=== PATIENT | male | born 1990 | race Caucasian/White ===

== ENCOUNTER → 2018-04-24 | Outpatient (REF) | payer SELFPAY ==
[2018-04-24 20:56] LABS: INFLUENZA A AMPLIFICATION POSITIVE (NEGATIVE); INFLUENZA B AMPLIFICATION NEGATIVE (NEGATIVE)
== END ==
LOC: M LAB REF 19:17
PROVIDERS: ATTEND Physician Assistant
DX: J11.1 Influenza due to unidentified influenza virus with other respiratory manifestations (principal)

== ENCOUNTER 2019-02-21 11:52 | Emergency (ER) | payer BC, SELFPAY ==
[~2019-02-21] VITALS: Ht 172.7 cm; Wt 85.8 kg
[2019-02-21 13:10] LABS: BASO % 0.2 % (0.0-1.0); EOS % 0.1 % (0.0-3.0); HEMATOCRIT 44.7 % (42.0-52.0); HEMOGLOBIN 15.2 g/dl (13.5-17.5); LYMPH # 1.5 10^3/uL (1.5-5.0); LYMPH % 9.3 % (24.0-44.0); MEAN CORPUSCULAR HEMOGLOBIN 29.7 pg (27.0-33.0); MEAN CORPUSCULAR VOLUME 87.3 fl (80.0-96.0); MONO # 0.7 10^3/uL (0.0-0.8); MONO % 4.2 % (0.0-5.0); NEUTROPHILS # 13.7 10^3/uL (1.5-8.5); NEUTROPHILS % 85.8 % (36.0-66.0); PLATELET COUNT, AUTOMATED 314 10^3/uL (150-450); RED BLOOD COUNT 5.12 10^6/uL (4.30-6.10)
[2019-02-21 13:37] LABS: ALBUMIN 4.5 GM/DL (3.2-5.2); ALT/SGPT 25 U/L (12-78); BILIRUBIN,DIRECT 0.2 MG/DL (0.0-0.2); BLOOD UREA NITROGEN 16 MG/DL (7-18); CALCIUM LEVEL 9.9 MG/DL (8.5-10.1); CARBON DIOXIDE LEVEL 21 MEQ/L (21-32); CHLORIDE LEVEL 108 MEQ/L (98-107); CREATININE FOR GFR 1.28 MG/DL (0.70-1.30); GLOMERULAR FILTRATION RATE > 60.0 (>60); GLUCOSE, FASTING 118 MG/DL (70-100); LIPASE 373 U/L (73-393); POTASSIUM SERUM 3.6 MEQ/L (3.5-5.1); SODIUM LEVEL 141 MEQ/L (136-145); TOTAL PROTEIN 7.6 GM/DL (6.4-8.2)
[2019-02-21] MEDS: MORPHINE 4 MG/ML 1ML VIAL/SYRINGE (J2270) IV PRN ×2 (14:00→15:18)
[2019-02-21] MEDS ORDERED: ONDANSETRON 4MG/2ML VIAL (J2405) IV ONE (14:00)
--- NOTE | 2019-02-21 14:29 | REP ---
Clinical: Hematuria and right-sided pain. Technique: Axial noncontrast images from the lung bases to the pubic symphysis with coronal and sagittal re-formations. Findings: Mild acute right-sided obstructive uropathy with edematous enlargement to the right kidney, perinephric stranding and hydroureteronephrosis a 4.5 mm calculus 1 cm proximal to the ureterovesicle junction (image 127). No further nephrolithiasis. Left kidney/ureter and bladder are normal. Liver, spleen, pancreas, gallbladder, bilateral adrenal glands are normal. The enteric system is normal. Normal appendix. Pelvis demonstrates age appropriate prostate/seminal vesicles. No ascites. No free air. No adenopathy. Abdominal aorta without aneurysm. Musculoskeletal structures are intact. Lung bases are clear. Impression: Acute right-sided obstructive uropathy with a 4.5 mm calculus just above the ureterovesical junction. Electronically Signed by Gabriele Bolivar MD 02/21/2019 02:20 P
[2019-02-21] MEDS ORDERED: KETOROLAC 30 MG/ML VIAL (J1885) As Ordered ONE (14:38)
[2019-02-21] MEDS ORDERED: KETOROLAC 30 MG/ML VIAL (J1885) IV ONE (14:45)
[2019-02-21] MEDS ORDERED: PERC5TAB12 PO (17:32)
[2019-02-21] MEDS ORDERED: FLOM0.4C39 PO (17:32)
[2019-02-21] MEDS ORDERED: ONDA4TAB6 PO (17:32)
[2019-02-21 17:47] VITALS: BP 133/65
== END 2019-02-21 17:49 | disposition home or self-care (01) ==
LOC: M ED 11:52
DX: N20.1 Calculus of ureter (principal); Z79.891 Long term (current) use of opiate analgesic; Z79.899 Other long term (current) drug therapy
CPT/HCPCS: 74176; 80048; 80076; 81001; 83690; 85025; 96374; 96375; 96376; 99284; J1885; J2270; J2405

== ENCOUNTER 2019-11-18 23:45 | Emergency (ER) | payer BC, OTHER ==
[~2019-11-18] VITALS: Ht 172.7 cm; Wt 83.9 kg
[~2019-11-18 23:45] MED LIST: FLOM0.4C39 PO; ONDA4TAB6 PO; PERC5TAB12 PO
[2019-11-19] MEDS ORDERED: LIDOCAINE 1% MDV 20ML VIAL As Ordered ONE (01:12)
[2019-11-19] MEDS ORDERED: LIDOCAINE W/EPINEPHRINE 1% 20ML VIAL As Ordered ONE (01:12)
[2019-11-19] MEDS ORDERED: BOOSTRIX/ADACEL VACCINE (DIPHTH/PERTUSS/ACELL/TETANUS) 0.5ML SYR IM ONE (02:00)
[2019-11-19] MEDS ORDERED: KETOROLAC 30 MG/ML 1ML VIAL IM ONE (02:00)
[2019-11-19] MEDS ORDERED: AUGMENTIN 875 MG TAB PO ONE (02:00)
[2019-11-19] MEDS ORDERED: LIDOCAINE W/EPINEPHRINE 1% 20ML VIAL SC ONE (02:30)
[2019-11-19] MEDS ORDERED: LIDOCAINE 1% MDV 20ML VIAL SC ONE (02:30)
[2019-11-19] MEDS ORDERED: AUGM875T28 PO (02:43)
[2019-11-19 02:56] VITALS: BP 134/72
== END 2019-11-19 02:58 | disposition home or self-care (01) ==
LOC: M ED 23:45
DX: S01.01XA Laceration without foreign body of scalp, initial encounter (principal); S01.312A Laceration without foreign body of left ear, initial encounter; W54.0XXA Bitten by dog, initial encounter; Y92.019 Unspecified place in single-family (private) house as the place of occurrence of the external cause
CPT/HCPCS: 12004; 12011; 90471; 90715; 96372; 99283; J1885